=== PATIENT | female | born 1975 | race Caucasian/White ===

== ENCOUNTER → 2024-12-11 08:23 | Outpatient (REF) | payer BC, SELFPAY | LOC: HWRAD 08:23 | PROVIDERS: ATTENDING PHYSICIAN Obstetrics & Gynecology Gynecology; FAMILY PHYSICIAN Family Medicine | DX: N92.4 Excessive bleeding in the premenopausal period (principal) | CPT/HCPCS: 76830; 76856 ==

== ENCOUNTER → 2024-12-26 16:14 | Outpatient (REF) | payer BC, SELFPAY | LOC: HWWDC 16:14 | PROVIDERS: ATTENDING PHYSICIAN Obstetrics & Gynecology Gynecology; FAMILY PHYSICIAN Family Medicine | DX: Z12.31 Encounter for screening mammogram for malignant neoplasm of breast (principal) | CPT/HCPCS: 77063; 77067 ==